=== PATIENT | female | born 1970 | race Caucasian/White ===

== ENCOUNTER 2020-11-09 15:22 | Outpatient (CLI) | payer OTHER | END 2020-11-09 23:59 | disposition home or self-care (01) | LOC: CVU 15:22 | PROVIDERS: ATTEND Nurse Practitioner Family | DX: I36.1 Nonrheumatic tricuspid (valve) insufficiency (principal); U07.1 COVID-19; I44.5 Left posterior fascicular block; R06.00 Dyspnea, unspecified; R07.9 Chest pain, unspecified; R94.31 Abnormal electrocardiogram [ECG] [EKG] | CPT/HCPCS: 93306; 93356 ==